=== PATIENT | male | born 1940 | race Caucasian/White ===

== ENCOUNTER 2017-04-29 17:03 | Inpatient (IN) | payer MEDICARE, BC ==
[2017-04-29] VITALS (7 sets, daily range): BP systolic 93–116; BP diastolic 48–58
[~2017-04-29] VITALS: Ht 172.7 cm; Wt 95.3 kg
--- NOTE | ~2017-04-29 | PR ---
[place], [place] PROGRESS NOTE NAME: ADONIS LUZ UNIT #: [id number] ROOM: 509 DOCTOR: JOSAFAT KEITH,VAISHNAVI Watson BIRTHDATE: [birth year] DOS: 05/01/2017 ADDENDUM After reviewing alice, labs and radiographs, I agree with the above plans as described. We will follow the patient up clinically and adjust accordingly. VAISHNAVI MAURICE MD CM:PNTRANS [id number] VAISHNAVI MAURICE MD 05/01/17 2335 interface
--- NOTE | ~2017-04-29 | PR ---
[place], [place] PROGRESS NOTE NAME: [id number] UNIT #: [id number] ROOM: 509 DOCTOR: CRISTINO CORTES,MAY BIRTHDATE: [birth year] DOS: 05/01/2017 SUBJECTIVE: The patient is a 77-year-old male who is being followed for an E. coli, UTI/pyelonephritis with gram-negative magnus septicemia. He is alert and oriented, feeling much better. Dysuria and hematuria have resolved. No nausea or vomiting. His stools are chronically loose. No rash or itch. No cough or shortness of breath. He has chronic back pain, no change in that. He has been afebrile. LABORATORY DATA: WBCs have improved to 12.0, platelets 151. BUN 31, creatinine has improved to 1.43, ALT is 61, AST 39. CURRENT MEDICATIONS: Cefepime, Toprol, Debrox, Neutra-Phos, heparin, multivitamin, Proscar, Cosopt, Os-Boy, aspirin, Zyloprim, Zocor, Xalatan eye drops, Restoril, Zofran, milk of mag, Dulcolax. DIAGNOSTIC STUDIES: He had a CT yesterday, which demonstrated bilateral perinephric stranding suspicious for pyelonephritis, as well as an enlarged prostate. He does have a history of enlarged prostate and follows with the urologist for the last 4 years. He is already on Proscar. He states he is having no issues passing his urine and does not feel any urinary retention. PHYSICAL EXAMINATION: VITAL SIGNS: Show temperature 97.9, pulse 69, respirations 18, BP 118/50. GENERAL: Alert and oriented 77-year-old male, in no acute distress, nontoxic in appearance. HEAD, EYES, EARS, NOSE AND THROAT: Normocephalic. No thrush. LUNGS: Clear to auscultation bilaterally. Respirations even and unlabored. HEART: Regular rhythm. No murmur appreciated. ABDOMEN: Soft, nontender, nondistended. EXTREMITIES: +2 edema to bilateral lower extremities. SKIN: Warm, dry, free of rashes. ASSESSMENT: Pyelonephritis with Escherichia coli and gram-negative magnus septicemia. PLAN: At this point, his antibiotics could be narrowed to Levaquin 750 mg p.o. daily, would anticipate a total of 2 weeks of treatment. I did discuss with him that this is a recurrent issue. He needs to make sure he follows up with his urologist in [place], as it could possibly be prostatitis or there may be further prostate issues if he has problems with recurrence. Case discussed with Dr. Vaishnavi Maurice. LYNN GREGG CNP [place], [place] PROGRESS NOTE NAME: ADONIS LUZ UNIT #: [id number] ROOM: [facility] DOCTOR: CRISTINO CORTES BIRTHDATE: [birth year] VAISHNAVI MAURICE MD CM:PNTRANS 40 25 CRISTINO CORTES 05/01/17 1605 interface
[2017-04-29] MEDS ORDERED: FUROSEMIDE40 MG PO (17:36)
[2017-04-29] MEDS ORDERED: ALLOPURINOL100 MG PO (17:37)
[2017-04-29] MEDS ORDERED: EFFER-K20 MEQ PO (17:37)
[2017-04-29] MEDS ORDERED: TAMSULOSIN HCL0.4 MG JT (17:37)
[2017-04-29] MEDS ORDERED: PROSCAR5 M1 PO (17:41)
[2017-04-29] MEDS ORDERED: SIMVASTATIN40 MG PO (17:42)
[2017-04-29] MEDS ORDERED: V-R WOMEN'S CO1 EACH PO (17:42)
[2017-04-29] MEDS ORDERED: ASPIRIN CHEWABL81 MG PO (17:43)
[2017-04-29] MEDS ORDERED: METOPROLOL SUCC50 M1 PO (17:43)
[2017-04-29 17:57] LABS: HEMATOCRIT 42.5 % (42.0-52.0); HEMOGLOBIN 13.6 g/dl (14.0-18.0); MEAN CELL VOLUME 96.8 fl (80.0-94.0); MEAN PLATELET VOLUME 9.2 fl (9.6-12.3); PLATELET COUNT AUTOMATED 177 10*3/uL (130-400); RED BLOOD COUNT 4.39 10*6/uL (4.50-5.90); RED CELL DISTRI WIDTH 13.3 % (0-14.5); WHITE BLOOD COUNT 5.6 10*3/uL (4.8-10.8)
[2017-04-29 18:09] LABS: BILIRUBIN 1+ (NEGATIVE); BLOOD 3+ (NEGATIVE); CLARITY CLOUDY (CLEAR); COLOR BROWN (YELLOW); GLUCOSE NEGATIVE (NEGATIVE); KETONE NEGATIVE (NEGATIVE); NITRITE POSITIVE (NEGATIVE)
[2017-04-29 18:20] LABS: ACT PARTIAL THROMBO TIME 22.5 SECONDS (20.8-31.5); INTERNATIONAL NORM RATIO 1.1 (2.0-3.5)
[2017-04-29 18:24] LABS: LEUKO ESTERASE 2+ (NEGATIVE); RBC TNTC rbc/hpf (0-2)
[2017-04-29 18:26] LABS: ALBUMIN 2.6 gm/dl (3.1-4.5); ALKALINE PHOSPHATASE 80 U/L (45-117); BUN 30 mg/dl (7-24); CHLORIDE 105 mmol/L (98-107); CREATININE 1.66 mg/dL (0.70-1.30); LIPASE 227 U/L (73-393); POTASSIUM 3.9 mmol/L (3.5-5.1); SGOT/AST 51 IU/L (3-35); SGPT/ALT 81 U/L (12-78); SODIUM 141 mmol/L (136-145); TOTAL CELLS COUNTED 100 #CELLS; TOTAL PROTEIN 7.4 gm/dL (6.4-8.2)
[2017-04-29 18:27] LABS: BURR CELLS FEW; PLATELET SUFFICIENCY NORMAL (NORMAL); POLYCHROMASIA SLIGHT; TROPONIN I < 0.015 ng/ml (<0.045)
[2017-04-29] MEDS ORDERED: CLARISPRAY9.9 ML NAS (20:59)
[2017-04-29] MEDS ORDERED: FISH OIL 1,0001 EAC6 PO (21:00)
[2017-04-29] MEDS ORDERED: CALCIUM 250-VI1 EACH PO (21:01)
[2017-04-29] MEDS ORDERED: MULTIVITAMINS1 EAC5 PO (21:02)
[2017-04-29] MEDS ORDERED: FEXOFENADINE H180 M1 PO (21:02)
[2017-04-29] MEDS ORDERED: KLOR-CON M2020 ME1 PO (21:03)
[2017-04-29] MEDS ORDERED: SYNTHROID25 MCG PO (21:03)
[2017-04-29] MEDS ORDERED: XALATAN 0.005%2.5 ML INTRAOC (21:05)
[2017-04-29] MEDS ORDERED: COSOPT 2%-0.5%10 ML OPH (21:05)
[2017-04-30] VITALS: BP 106/57
[2017-04-30 04:00] VITALS: BP 105/59
[2017-04-30 06:37] LABS: HEMATOCRIT 37.3 % (42.0-52.0); MEAN CELL VOLUME 97.1 fl (80.0-94.0); MEAN CORPUSCULAR HGB 31.3 pg (27.0-31.0); MEAN CORPUSCULAR HGB CONC 32.2 g/dl (33.0-37.0); MEAN PLATELET VOLUME 9.2 fl (9.6-12.3); PLATELET COUNT AUTOMATED 155 10*3/uL (130-400); RED BLOOD COUNT 3.84 10*6/uL (4.50-5.90); RED CELL DISTRI WIDTH 13.5 % (0-14.5); WHITE BLOOD COUNT 19.6 10*3/uL (4.8-10.8)
[2017-04-30 06:43] LABS: POTASSIUM 4.3 mmol/L (3.5-5.1)
[2017-04-30 06:51] LABS: ALBUMIN 2.2 gm/dl (3.1-4.5); CREATININE 1.65 mg/dL (0.70-1.30); FREE T4 1.01 ng/dl (0.76-1.46); PHOSPHOROUS 3.7 mg/dL (2.5-4.9); THYROID STIM HORMONE (HS) 0.856 uIU/ml (0.358-4.75); TOTAL PROTEIN 6.4 gm/dL (6.4-8.2)
[2017-04-30 07:32] LABS: TOTAL CELLS COUNTED 100 #CELLS
[2017-04-30 07:33] LABS: PLATELET SUFFICIENCY NORMAL (NORMAL)
[2017-04-30 08:00] VITALS: BP 108/50; BP 110/56
[2017-04-30 08:11] LABS: VITAMIN D, 25-HYDROXY 23.7 ng/mL (30-100)
[2017-04-30 12:00] VITALS: BP 98/42
[2017-04-30 16:00] VITALS: BP 103/54
[2017-04-30 20:00] VITALS: BP 105/53
[2017-05-01] VITALS: BP 115/54
[2017-05-01 06:27] LABS: BASO # 0.1 10*3/uL (0.0-0.1); BASO % 0.5 % (0.0-1.0); EOS # 0.1 10*3/uL (0.0-0.4); EOS % 0.8 % (1.0-4.0); HEMATOCRIT 34.8 % (42.0-52.0); HEMOGLOBIN 10.9 g/dl (14.0-18.0); LYMPH # 1.3 10*3/uL (1.3-4.4); LYMPH % 10.8 % (27.0-41.0); MEAN CELL VOLUME 97.2 fl (80.0-94.0); MEAN CORPUSCULAR HGB 30.4 pg (27.0-31.0); MEAN CORPUSCULAR HGB CONC 31.3 g/dl (33.0-37.0); MONO # 0.8 10*3/uL (0.1-1.0); MONO % 6.9 % (3.0-9.0); NEUT # 9.7 10*3/uL (2.3-7.9); NEUT % 80.3 % (47.0-73.0); PLATELET COUNT AUTOMATED 151 10*3/uL (130-400); RED BLOOD COUNT 3.58 10*6/uL (4.50-5.90); RED CELL DISTRI WIDTH 13.5 % (0-14.5)
[2017-05-01 06:51] LABS: ALBUMIN 2.1 gm/dl (3.1-4.5); CREATININE 1.43 mg/dL (0.70-1.30); PHOSPHOROUS 2.4 mg/dL (2.5-4.9); POTASSIUM 4.1 mmol/L (3.5-5.1)
[2017-05-01 08:00] VITALS: BP 108/58
[2017-05-01 12:00] VITALS: BP 112/62
[2017-05-01 16:00] VITALS: BP 118/58
[2017-05-01 20:00] VITALS: BP 120/59
[2017-05-02 00:37] VITALS: BP 112/64
[2017-05-02 05:51] LABS: BASO % 0.3 % (0.0-1.0); EOS # 0.1 10*3/uL (0.0-0.4); EOS % 1.7 % (1.0-4.0); HEMATOCRIT 36.3 % (42.0-52.0); HEMOGLOBIN 11.7 g/dl (14.0-18.0); LYMPH # 1.1 10*3/uL (1.3-4.4); LYMPH % 15.6 % (27.0-41.0); MEAN CORPUSCULAR HGB CONC 32.2 g/dl (33.0-37.0); MEAN PLATELET VOLUME 9.3 fl (9.6-12.3); MONO # 0.5 10*3/uL (0.1-1.0); MONO % 6.7 % (3.0-9.0); NEUT # 5.5 10*3/uL (2.3-7.9); NEUT % 75.3 % (47.0-73.0); PLATELET COUNT AUTOMATED 147 10*3/uL (130-400); RED BLOOD COUNT 3.78 10*6/uL (4.50-5.90); RED CELL DISTRI WIDTH 13.6 % (0-14.5); WHITE BLOOD COUNT 7.3 10*3/uL (4.8-10.8)
[2017-05-02 06:16] LABS: CHLORIDE 111 mmol/L (98-107); POTASSIUM 4.1 mmol/L (3.5-5.1); SODIUM 143 mmol/L (136-145)
[2017-05-02 06:26] LABS: ALBUMIN 2.2 gm/dl (3.1-4.5); ALKALINE PHOSPHATASE 78 U/L (45-117); CREATININE 1.13 mg/dL (0.70-1.30); PHOSPHOROUS 2.8 mg/dL (2.5-4.9); SGOT/AST 60 IU/L (3-35); SGPT/ALT 77 U/L (12-78); TOTAL PROTEIN 6.2 gm/dL (6.4-8.2)
[2017-05-02 06:27] LABS: BUN 21 mg/dl (7-24)
[2017-05-02 08:00] VITALS: BP 119/54
[2017-05-02 12:00] VITALS: BP 134/65
[2017-05-02] MEDS ORDERED: LEVAQUIN750 M1 PO (12:35)
[2017-05-02] MEDS ORDERED: FINASTERIDE5 M1 PO (13:24)
[2017-05-02] MEDS ORDERED: ALLOPURINOL100 MG PO (13:24)
[2017-05-02] MEDS ORDERED: METOPROLOL SUCC25 M2 PO (13:24)
== END 2017-05-02 14:35 | disposition home or self-care (01) | DRG 871 ==
LOC: ED 17:03 → EDHOLD 19:09 → 5E 19:09
PROVIDERS: Emergency Medicine; Internal Medicine Nephrology; Student in an Organized Health Care Education/Training Program
PROC: 5A09357 Assistance with Respiratory Ventilation, Less than 24 Consecutive Hours, Continuous Positive Airway Pressure (ICD-10-PCS; principal; 2017-04-30)
DX: A41.51 Sepsis due to Escherichia coli [E. coli] (principal); J96.01 Acute respiratory failure with hypoxia; N17.0 Acute kidney failure with tubular necrosis; E43 Unspecified severe protein-calorie malnutrition; N10 Acute pyelonephritis; E87.2 Acidosis; E11.65 Type 2 diabetes mellitus with hyperglycemia; E83.41 Hypermagnesemia; R65.20 Severe sepsis without septic shock; D53.9 Nutritional anemia, unspecified; D72.810 Lymphocytopenia; N40.0 Benign prostatic hyperplasia without lower urinary tract symptoms; M1A.9XX0 Chronic gout, unspecified, without tophus (tophi); H47.013 Ischemic optic neuropathy, bilateral; M47.816 Spondylosis without myelopathy or radiculopathy, lumbar region; I25.10 Atherosclerotic heart disease of native coronary artery without angina pectoris; H16.329 Diffuse interstitial keratitis, unspecified eye; M19.90 Unspecified osteoarthritis, unspecified site; E03.9 Hypothyroidism, unspecified; R80.9 Proteinuria, unspecified; R74.0 Nonspecific elevation of levels of transaminase and lactic acid dehydrogenase [LDH]; K57.90 Diverticulosis of intestine, part unspecified, without perforation or abscess without bleeding; G89.29 Other chronic pain; M54.9 Dorsalgia, unspecified; Z68.31 Body mass index [BMI] 31.0-31.9, adult; I25.2 Old myocardial infarction; Z71.6 Tobacco abuse counseling; Z87.891 Personal history of nicotine dependence; Z82.49 Family history of ischemic heart disease and other diseases of the circulatory system; Z79.82 Long term (current) use of aspirin